=== PATIENT | female | born 1955 | race American Indian/Alaskan Native ===

== ENCOUNTER 2019-05-08 08:41 | Outpatient (CLI) | payer BC ==
[2019-05-11 16:58] LABS: Vitamin D, 25-OH, D2 <4 ng/mL
== END 2019-05-08 08:42 | disposition home or self-care (01) ==
LOC: LAB 08:41
PROVIDERS: ATTEND Specialist
DX: M54.17 Radiculopathy, lumbosacral region (principal); G62.9 Polyneuropathy, unspecified
CPT/HCPCS: 36415; 82306; 82550; 82607; 83036; 83921; 84443; 85652